=== PATIENT | male | born 1970 | race Caucasian/White ===

== ENCOUNTER 2023-02-02 14:56 | Outpatient (OUT) | payer OTHER, SELFPAY ==
--- NOTE | 2023-02-02 15:52 | ECG_ITS ---
[facility] Test Date: 2023-02-02 Pat Name: EUGENE KIDD Department: Room: - Gender: Male Order Schedule Clerk: : 1970 Requested By: MAGUE HAHN Order Number: [id number] Reading MD: GABRIEL CHRISTIANSON Measurements Intervals Sandy Rate: 61 P: 46 UT: 202 QRS: -29 QRSD: 110 T: -13 QT: 395 QTc: 398 Interpretive Statements SINUS RHYTHM BORDERLINE LEFT AXIS DEVIATION [QRS AXIS < -20] NONSPECIFIC T-WAVE ABNORMALITY No previous ECG available for comparison Electronically Signed On 02-03-2023 7:09:54 EDT by GABRIEL CHRISTIANSON
[2023-02-02 16:18] LABS: Basophils Absolute Auto 0.1 10^3/uL (0.0-0.1); Basophils Percent Auto 1.2 % (0.2-2.0); Eosinophils Absolute Auto 0.2 10^3/uL (0.0-0.7); Eosinophils Percent Auto 3.5 % (0.9-7.0); Hematocrit 42.8 % (42.0-54.0); Hemoglobin 13.9 g/dL (14.0-18.0); Immature Granulocytes Abs Auto 0.03 10^3/uL (0.00-0.03); Immature Granulocytes Pct Auto 0.4 % (0.0-0.5); Lymphocytes Absolute Auto 2.9 10^3/uL (1.2-3.8); Lymphocytes Percent Auto 42.2 % (20.5-60.0); Mean Corpuscular HGB Conc 32.5 g/dL (29.9-35.2); Mean Corpuscular Hemoglobin 30.8 pg (25.9-34.0); Mean Corpuscular Volume 94.7 fL (80.0-94.0); Mean Platelet Volume 9.9 fL (9.5-13.5); Monocytes Absolute Auto 0.7 10^3/uL (0.3-0.8); Monocytes Percent Auto 10.9 % (1.7-12.0); Neutrophils Absolute Auto 2.8 10^3/uL (1.4-6.5); Neutrophils Percent Auto 41.8 % (43.0-75.0); Platelet Count 190 10^3/uL (150-450); Red Blood Count 4.52 10^6/uL (4.70-6.10); Red Cell Distribution Width 12.4 % (11.0-15.0); White Blood Count 6.8 10^3/uL (4.0-11.0)
[2023-02-02 16:39] LABS: INR 1.02; Partial Thromboplastin Time 28.3 sec (22.3-36.2); Prothrombin Time 10.8 sec (9.0-11.6)
== END 2023-02-02 14:57 | disposition home or self-care (01) ==
LOC: PST 14:58
PROVIDERS: PCP Family Medicine; Visit Provider Otolaryngology
DX: Z01.810 Encounter for preprocedural cardiovascular examination (principal); Z01.812 Encounter for preprocedural laboratory examination; J34.89 Other specified disorders of nose and nasal sinuses
CPT/HCPCS: 36415; 85025; 85610; 85730; 93005

== ENCOUNTER 2023-02-09 06:53 | Day surgery (SDC) | payer OTHER, SELFPAY ==
[2023-02-02 15:21] VITALS: BP 130/82; PULSE 68; RESP 16; TEMP 36.3; O2SAT 96; BMI 29.9
[2023-02-09] VITALS (9 sets, daily range): BP systolic 119–142; BP diastolic 84–97; PULSE 61–78; RESP 16–29; TEMP 36.3; O2SAT 93–100; BMI 29.1
--- NOTE | 2023-02-09 | OP_ITS ---
OPERATION DATE: ??02/09/2023 SURGEON:? Inge Crespo M.D. PREOPERATIVE DIAGNOSIS:? Left internal nasal lesion. POSTOPERATIVE DIAGNOSIS:? Left internal nasal lesion. PROCEDURE:? Removal of left internal nasal lesion. ANESTHESIA:? General endotracheal. COMPLICATIONS:? None. FINDINGS:? Left mid to anterior floor of nose lesion consistent with papilloma. INDICATIONS:? 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 PROCEDURE:? Patient identified in the holding area and taken back to the OR, where he was placed in the supine position.? After induction of general endotracheal anesthesia, the table was turned.? An Afrin soaked pledget was placed in the nose, and after waiting adequate time for decongestion, the nose was copiously irrigated.? Then, lidocaine 1% with 1:100,000 epinephrine was injected around the lesion, and after waiting adequate time for hemostasis, the nose was re-approached with a 30 degree nasal endoscope.? Using an otologic flat knife, incisions were made around the circumference of the lesion; posteriorly, anterior to the left and to the right, and then the area inscribed by the incisions was then elevated off of the bone of the floor of the nose and the inferior portion of the septum.? The patient?s lesion was removed en bloc, down to bone and cartilage.? Hemostasis was then achieved with suction Bovie, and the nose was again copiously irrigated. There was no significant bleeding and antibiotic ointment was placed over the incision site, and the patient awakened and taken to the recovery room in good condition. DESMOND
[2023-02-09] MEDS: LACTATED RINGER'S SOLUTION 1,000 ML 50 ML IV (07:21)
[2023-02-09] MEDS: LIDOCAINE HCL 1%-EPINEPHRINE 1:100,000 10 ML MDV INJ (09:47)
[2023-02-09] MEDS: BACITRACIN OINTMENT 28.4 GM TUBE 1 APPLIC TOPICAL (10:16)
[2023-02-09] MEDS: LACTATED RINGER'S SOLUTION 1,000 ML 1000 ML IV (10:18)
== END 2023-02-09 12:20 | disposition home or self-care (01) ==
PROVIDERS: PCP Family Medicine; Visit Provider Otolaryngology
PROC: (CPT 31237; principal; 2023-02-09 08:10)
DX: D36.7 Benign neoplasm of other specified sites (principal); J34.89 Other specified disorders of nose and nasal sinuses; I10 Essential (primary) hypertension
CPT/HCPCS: 31237; 88305; J2704